=== PATIENT | male | born 2000 | race Caucasian/White ===

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

== ENCOUNTER 2022-01-31 10:29 | Emergency (ER) | payer OTHER ==
[~2022-01-31] VITALS: Ht 170.2 cm; Wt 73.5 kg
[~2022-01-31 10:29] MED LIST: IBUPROFEN400 MG PO; NORCO 5-325 TA1 EACH PO
== END 2022-01-31 12:45 | disposition home or self-care (01) ==
LOC: ED 10:29
DX: S06.0X0A Concussion without loss of consciousness, initial encounter (principal); S16.1XXA Strain of muscle, fascia and tendon at neck level, initial encounter; Z88.5 Allergy status to narcotic agent; Y04.0XXA Assault by unarmed brawl or fight, initial encounter
CPT/HCPCS: 72040; 99283-25

== ENCOUNTER 2022-07-05 08:10 | Emergency (ER) | payer OTHER ==
[~2022-07-05] VITALS: Ht 170.2 cm; Wt 73.5 kg
[2022-07-05] MEDS ORDERED: PREDNISONE20 MG PO (09:21)
== END 2022-07-05 09:36 | disposition home or self-care (01) ==
LOC: ED 08:10
DX: S39.012A Strain of muscle, fascia and tendon of lower back, initial encounter (principal); W17.89XA Other fall from one level to another, initial encounter; Z88.5 Allergy status to narcotic agent
CPT/HCPCS: 73502; 99283-25; J7512

== ENCOUNTER 2022-12-24 07:58 | Emergency (ER) | payer OTHER ==
[~2022-12-24] VITALS: Ht 170.2 cm; Wt 72.6 kg
[~2022-12-24 07:58] MED LIST changes: +PREDNISONE20 MG PO
[2022-12-24] MEDS ORDERED: PRILOSEC OTC20 MG PO (12:15)
[2022-12-24] MEDS ORDERED: ONDANSETRON ODT4 MG PO (12:17)
== END 2022-12-24 12:30 | disposition home or self-care (01) ==
LOC: ED 07:58
DX: K22.6 Gastro-esophageal laceration-hemorrhage syndrome (principal); K29.70 Gastritis, unspecified, without bleeding; K29.80 Duodenitis without bleeding; Z88.5 Allergy status to narcotic agent
CPT/HCPCS: 36415; 74177; 80053; 81003; 83690; 83735; 85025; 96361; 96375; 99284-25; C9113; J2405; J7030; Q9967